=== PATIENT | female | born 1990 | race Caucasian/White ===

== ENCOUNTER → 2017-04-21 | Day surgery (SDC) | payer OTHER ==
[~2017-04-21] MED LIST: ADDERALL 30 MG30 MG PO; ALPRAZOLAM0.5 M4 PO; BACTRIM DS TAB1 EACH PO; CYCLOBENZAPRINE10 M1 PO; FISH OIL 1,0001 EAC2 PO; MULTI-DAY VITA1 EACH PO; NAPROXEN500 M2 PO; NORETHIN ESTRA PO; PERCOCET 5-3251 EACH PO; PYRIDIUM200 M1 PO
--- NOTE | 2017-04-26 12:57 | Operative Report ---
Operative/Inv Procedure Report Surgery Date: 04/21/17 Name of Procedure: cystoscopy:hydrodistention Pre-Operative Diagnosis: frequent UTI Post-Operative Diagnosis: interstitial cystitis Estimated Blood Loss: scant Surgeon/Label Stitcher: Tai Shabazz MD Anesthesia: laryngeal mask airway Complications: none Operative/Procedure Note Note: The patient was taken to the operative room and placed on the OR table in supine position. Timeout was performed in order to confirm the patient's identity, procedure, anesthesia, antibiotics, as well as any other pertinent information. After adequate anesthesia, and antibiotics, the patient was then placed lithotomy stirrups draped and prepped in the usual surgical fashion. A 22 [place] cystoscope sheath with a 30 angle lens was inserted into the urethra and advanced into the bladder without difficulty. The bladder was noted to have the findings as discussed above. The bladder was then hydrodistended 2 with the irrigation fluid at 40 cm above the symphysis pubis. No evidence of tumor, increased petechiae, nor Hunner's ulceration was noted. Both ureteral orifices had clear reflux in their orthotopic position. No terminal bleed with drainage. Bladder capacity was normal. The bladder was then drained and the cystoscope was removed under direct visualization. The patient tolerated procedure well and was taken to recovery room in satisfactory condition. Findings: multiple petechiae, terminal bleed, bladder capacity 650cc. Discharge Disposition: PACU CC: Tai Shabazz MD
== END ==
LOC: STS 03:10
DX: N39.0 Urinary tract infection, site not specified (principal); N32.89 Other specified disorders of bladder; R31.9 Hematuria, unspecified
CPT/HCPCS: 81025; J2250